=== PATIENT | female | born 1995 | race Caucasian/White ===

== ENCOUNTER 2018-10-06 09:04 | Emergency (ER) | payer BC, SELFPAY ==
[2018-10-06] MEDS ORDERED: HYDROcodone/Acetaminophen 5/325 mg Tablet ONE (09:29)
[2018-10-06 10:08] LABS: BHCG - Serum Negative (NEGATIVE); Pregs Control Background? CLEAR/WHITE (CLR/WHITE); Pregs Control Bar Appear? YES (CONTROL BAR)
[2018-10-06 10:12] LABS: #Eosinphils 0.2 thou/uL (0.0-0.7); #Lymphocytes 2.5 thou/uL (1.20-3.40); #Monocytes 1.2 thou/uL (0.11-0.59); #Neutrophils 8.2 thou/uL (1.40-6.50); %Basophils 0.2 % (0.0-1.0); %Eosinophils 1.7 % (0.0-10.0); %Lymphocytes 20.4 % (21.0-51.0); %Neutrophils 67.7 % (42.0-75.0); Hemoglobin 12.3 g/dL (12.0-16.0); Mean Corpuscular HGB CONC 32.8 g/dL (32.0-36.0); Mean Corpuscular Hemoglobin 26.3 pg (27.0-31.0); Mean Platelet Volume 7.2 fL (7.4-10.4); Platelet Count 372 thou/uL (130-400); RBC Distribution Width 12.2 % (11.5-14.5)
[2018-10-06] MEDS ORDERED: ISOVUE-370 76%-LOCM 1 ML ONE (10:58)
--- NOTE | 2018-10-06 11:19 | CT ---
FACIAL BONE CT WITH CONTRAST: HISTORY: Right lower jaw swelling. Pain. COMPARISON: None. FINDINGS: Visualized brain parenchyma is unremarkable. Bilateral ocular lenses are appropriately located.. Both globes are intact. Retrobulbar fat is preser smiley. Symmetric attenuation of the optic nerves and ocular rectus muscle. Bilaterally, osteomeatal complexes are patent. No erosive or destructive changes of the sinuses or or bits. Rightward deviation of the nasal septum. With regards to tooth #30, there is a dental caries in a periapical lucency suggesting a periapical a bscess. There is no evidence of right mandibular bony destruction. There is swelling involving the overlying right mandibular soft tissues. There is stranding of the subcutaneous fat. No evidence of a drainable abscess. Mild edema of the right gingival soft tissues. Enlarged right level 1 lymph node measuring 1.4 x 0.9 cm. Aerodigestive tract is patent. Nonspecific palatine tonsillar hypertrophy. IMPRESSION: 1. Periapical abscess with associated dental caries involving tooth #30 (first molar tooth in the ri ght mandible). There is swelling swelling of the overlying soft tissues. No drainable abscess. 2. Enlarged reactive right level 1 lymph nodes. Transcribed Date/Time: 10/06/2018 11:42 AM
== END 2018-10-06 11:45 | disposition home or self-care (01) ==
LOC: ERS 09:04
DX: K04.7 Periapical abscess without sinus (principal)
CPT/HCPCS: 70487; 84703; 85025; Q9966

== ENCOUNTER 2019-01-10 10:44 | Emergency (ER) | payer BC, MEDICAID ==
[2019-01-10 11:13] LABS: #Eosinphils 0.2 thou/uL (0.0-0.7); #Lymphocytes 2.1 thou/uL (1.20-3.40); #Monocytes 0.7 thou/uL (0.11-0.59); #Neutrophils 4.8 thou/uL (1.40-6.50); %Basophils 0.5 % (0.0-1.0); %Eosinophils 2.1 % (0.0-10.0); %Lymphocytes 26.8 % (21.0-51.0); %Monocytes 8.7 % (0.0-10.0); %Neutrophils 61.9 % (42.0-75.0); Hemoglobin 12.2 g/dL (12.0-16.0); Mean Corpuscular HGB CONC 32.8 g/dL (32.0-36.0); Mean Corpuscular Hemoglobin 25.6 pg (27.0-31.0); Mean Platelet Volume 7.6 fL (7.4-10.4); Platelet Count 346 thou/uL (130-400); RBC Distribution Width 11.9 % (11.5-14.5); Red Blood Cell (RBC) Count 4.78 mill/uL (4.20-5.40); White Blood Cell (WBC) Count 7.7 thou/uL (4.8-10.8)
[2019-01-10 11:39] LABS: ALT (SGPT) 12 U/L (8-55); AST (SGOT) 17 U/L (5-34); Albumin 4.2 g/dL (3.5-5.0); Alkaline Phosphatase 74 U/L (40-150); Anion Gap 8 mmol/L (10-20); BUN (Urea Nitrogen) 9 mg/dL (7.0-18.7); Bilirubin, Total 0.5 mg/dL (0.2-1.2); Calc. Creatinine Clearance 0 mL/min (70-130); Calcium 9.1 mg/dL (7.8-10.44); Carbon Dioxide 26 mmol/L (22-29); Chloride 105 mmol/L (98-107); Estimated GFR-MDRD Greater than 90; Globulin 3.1 g/dL (2.4-3.5); Glucose 84 mg/dL (70-105); Lipase 13 U/L (8-78); Potassium 4.1 mmol/L (3.5-5.1); Protein, Total 7.3 g/dL (6.0-8.3); Sodium 135 mmol/L (136-145)
[2019-01-10 11:59] LABS: Pregnancy Test - Urine (BHCG) Negative (Negative); Pregu Control Background? CLEAR/WHITE (CLR/WHITE); Pregu Control Bar Appear? YES (CONTROL BAR); Specific Gravity 1.017 (1.002-1.036)
[2019-01-10 12:18] LABS: Bacteria/HPF 3+ HPF (None Seen); Bilirubin Negative (Negative); Blood, Urine 2+ (Negative); Clarity Turbid (Clear); Glucose, Urine (Dipstick) Normal (Negative); Leukocyte 500 Leu/uL (Negative); Nitrite 2+ (Negative); Protein, Urine (Dipstick) 50 mg/dL (Neg-Trace); Urobilinogen Normal mg/dL (Less than 2); WBC/HPF Greater than 50 HPF (0-3)
[2019-01-10 12:22] LABS: Renal Epithelial 0-3 HPF (None Seen)
== END 2019-01-10 13:19 | disposition home or self-care (01) ==
LOC: ERS 10:44
DX: N12 Tubulo-interstitial nephritis, not specified as acute or chronic (principal)
CPT/HCPCS: 36415; 80053; 81003; 81015; 81025; 83690; 85025; 87077; 87086; 87186; 99284

== ENCOUNTER 2019-11-24 19:52 | Emergency (ER) | payer BC, MEDICAID | END 2019-11-24 20:55 | disposition home or self-care (01) | LOC: ERS 19:52 | DX: K03.81 Cracked tooth (principal); K02.9 Dental caries, unspecified | CPT/HCPCS: 99283 ==